=== PATIENT | male | born 1955 | race Caucasian/White ===

== ENCOUNTER 2016-07-11 19:05 | Observation (INO) ==
--- NOTE | 2016-07-11 19:53 | Emergency Department Note ---
Disposition Clinical Impression: Palpitations, Cardiac arrhythmia Disposition: Admitted As Inpatient Referrals: Unassigned,Provider [Primary Care Provider] - Forms: ED Satisfaction Letter Arrhythmia/Palpitations HPI - General Chief Complaint: ED Arrhythmia/Palpitations Stated Complaint: in afib Time Seen by Provider: 07/11/16 19:15 Source: patient - History of Present Illness HPI Narrative: 61-year-old male history of coronary artery disease, status post triple vessel bypass, status post PCI, atrial fibrillation presents with chief complaint of palpitations. Patient states palpitations started this afternoon. He describes them as butterflies in his chest, and flip-flopping. They have been intermittent. He denies shortness of breath, chest pain, headache, blurry vision, syncope, diaphoresis. Patient has a left heart catheter in February showing 2 patent grafts with sinus PDA graft 100% occluded. At that time was discharged with medical therapy only. Patient is on aspirin and Plavix, beta jose rafael, Ranexa, Imdur and takes it as scheduled. - Related Data Home Medications Medication Instructions Recorded Confirmed Aspirin 81 mg PO DAILY 12/06/14 03/15/16 Atorvastatin [Lipitor] 40 mg PO HS 12/06/14 03/15/16 Clopidogrel [Plavix] 75 mg PO DAILY 12/06/14 03/15/16 Metoprolol XL (24 HR) Succ [Toprol 50 mg PO BID 12/06/14 03/15/16 XL] Nitroglycerin [Nitrostat] 0.4 mg SL Q5M PRN 12/06/14 03/15/16 Ranolazine [Ranexa] 1,000 mg PO BID 12/06/14 03/15/16 Fluticasone Propionate [Flonase 9.9 ml NS DAILY PRN 03/15/16 03/15/16 Allergy Relief] Montelukast [Singulair] 10 mg PO DAILY 03/15/16 03/15/16 Ranitidine HCl [Zantac] 300 mg PO DAILY PRN 03/15/16 03/15/16 Allergies Allergy/AdvReac Type Severity Reaction Status Date / Time Penicillins Allergy Mild swelling, Verified 07/11/16 19:27 itching digoxin Allergy unknown Verified 07/11/16 19:27 Review of Systems: ROS: Constitutional: Denies fevers chills HEENT: Denies blurry vision, headache, sore throat, rhinorrhea Heart: Denies chest pain, syncope, diaphoresis, or palpitations Lungs: Denies shortness of breath, cough Abdomen: Denies abdominal pain, nausea, vomiting : Denies dysuria, Extremeties: Denies leg cramps, swelling Neuro: Denies numbness and tingling Past Medical History - Past Medical History Medical history: Reports: atrial fibrillation, coronary artery disease, hyperlipidemia Surgical history: Reports: angioplasty/stent, coronary bypass (CABG) Psychiatric history: Reports: no psych history - Social History Smoking Status: Former smoker Smokeless Tobacco Status: No Alcohol use: Reports: occasionally Drug use: Reports: none Physical Exam General: Alert and oriented to place, time, self HEENT: Head normocephalic, atraumatic, EOMI, PERRLA, neck without lymphadenopathy, absent JVD, moist mucous membranes Heart: Regular rate and rhythm no murmur, Lungs: Clear to auscultation bilaterally Abdomen: Soft nontender nondistended with positive bowel sounds Extremities: Normal capillary refill, 1+ pedal edema bilaterally - General General appearance: alert, in no apparent distress Course Course Narrative: We will order troponin, EKG, chest x-ray CBC, BMP - Reevaluation(s) Reevaluation #1: EKG shows sinus rhythm with rate of 60 and a run of PVCs. There is no ST-T wave changes. Previous EKG does not show any PVCs, otherwise no changes. Patient says he has history of atrial fibrillation but is not on any anticoagulation for this. Time: 19:57 Reevaluation #2: Electrolytes normal. Troponin 0.00. Chest x-ray stable cardiomegaly. Time: 20:40 Vital Signs Temperature 98.0 F 07/11/16 19:19 Pulse Rate 56 07/11/16 19:19 Respiratory Rate 16 07/11/16 19:19 Blood Pressure 154/104 07/11/16 19:19 O2 Sat by Pulse Oximetry 98 07/11/16 19:19 Temperature 98.0 F 07/11/16 19:19 Pulse Rate 63 07/11/16 20:51 Respiratory Rate 16 07/11/16 20:51 Blood Pressure 141/92 07/11/16 20:51 O2 Sat by Pulse Oximetry 95 07/11/16 20:51 Oxygen Delivery Oxygen Delivery Room Air Arrhythmia/Palpitations - MDM Narrative Medical decision making narrative: Patient has extensive cardiac history: Status post PCI, status post CABG 3 who has new onset of recurrent runs of PVCs of 15-30 seconds with symptoms of palpitations. RF: male sex, obesity, CAD, HLD. Patient is except for hospitalist for overnight observation. - Differential Diagnosis Differential Diagnosis: Likely: palpitations - Medical Records Medical records reviewed: Yes I reviewed the patient's medical records. - Lab Data Lab results reviewed: Yes I reviewed the patient's lab results. Result diagrams: 07/11/16 19:55 07/11/16 19:55 Lab Results 07/11/16 07/11/16 07/11/16 Range/Units 19:55 19:55 19:55 WBC 7.3 (4.3-11.1) K/mcL RBC 5.09 (4.19-5.50) M/mcL Hgb 15.7 (12.9-16.9) g/dL Hct 44.9 (37.5-50.1) % MCV 88.2 (83.0-100.0) fL MCH 30.8 (28.0-33.3) pg MCHC 35.0 (31.6-35.5) g/dL RDW 12.5 (11.5-14.5) % Plt Count 205 (140-400) K/mcL MPV 10.2 (9.4-12.4) fL PT (9.4-12.1) Seconds INR Sodium 138 (136-145) mEq/L Potassium 4.4 (3.5-4.5) mEq/L Chloride 103 (98-109) mEq/L Carbon Dioxide 25 (19-29) mEq/L BUN 13 (8-26) mg/dL Creatinine 1.06 (0.72-1.25) mg/dL Est GFR ( Amer) > 60 (> 60) Est GFR (Non-Af Amer) > 60 (> 60) BUN/Creatinine Ratio 12 (6-26) Glucose 99 (70-99) mg/dL Calculated Osmolality 286 (280-300) Calcium 9.0 (8.6-10.8) mg/dL Magnesium 2.3 (1.6-2.6) mg/dL Troponin I 0.00 (0-0.03) ng/mL B-Natriuretic Peptide (0-100) pg/mL 07/11/16 07/11/16 Range/Units 19:55 19:55 WBC (4.3-11.1) K/mcL RBC (4.19-5.50) M/mcL Hgb (12.9-16.9) g/dL Hct (37.5-50.1) % MCV (83.0-100.0) fL MCH (28.0-33.3) pg MCHC (31.6-35.5) g/dL RDW (11.5-14.5) % Plt Count (140-400) K/mcL MPV (9.4-12.4) fL PT 11.7 (9.4-12.1) Seconds INR 1.1 Sodium (136-145) mEq/L Potassium (3.5-4.5) mEq/L Chloride (98-109) mEq/L Carbon Dioxide (19-29) mEq/L BUN (8-26) mg/dL Creatinine (0.72-1.25) mg/dL Est GFR ( Amer) (> 60) Est GFR (Non-Af Amer) (> 60) BUN/Creatinine Ratio (6-26) Glucose (70-99) mg/dL Calculated Osmolality (280-300) Calcium (8.6-10.8) mg/dL Magnesium (1.6-2.6) mg/dL Troponin I (0-0.03) ng/mL B-Natriuretic Peptide 99 (0-100) pg/mL - Radiology Data Radiology results reviewed: Yes I reviewed the patient's radiology results. - EKG Data EKG results narrative: EKG shows sinus rhythm with rate of 60 and a run of PVCs. There is no ST-T wave changes. Previous EKG does not show any PVCs, otherwise no changes.
[2016-07-11 20:06] LABS: Hematocrit 44.9 % (37.5-50.1); Hemoglobin 15.7 g/dL (12.9-16.9); Mean Corpuscular Hemoglobin 30.8 pg (28.0-33.3); Mean Corpuscular Volume 88.2 fL (83.0-100.0); Mean Platelet Volume 10.2 fL (9.4-12.4); Platelet Count 205 K/mcL (140-400); Red Blood Count 5.09 M/mcL (4.19-5.50); Red Cell Distribution Width 12.5 % (11.5-14.5)
[2016-07-11 20:12] LABS: INR 1.1; Prothrombin Time 11.7 Seconds (9.4-12.1)
--- NOTE | 2016-07-11 20:12 | Emergency Department Note ---
START Narrative - START START: I evaluated and examined the patient with the resident and agree with assessment findings and plan. I spent direct [id number] time with the patient. The patient appears to have a history of atrial fibrillation from when he was 19 years old. Is currently not anticoagulated. His EKG shows abnormalities including frequent PVCs. Physical examination as documented and unremarkable apart from some lower extremity edema worse on the right chronic secondary to previous venous stripping. The patient's laboratory testing and chest x-ray are negative. Based on the patient's history of coronary artery disease, history of atrial fibrillation, new onset symptomatic palpitations with notable frequent PVCs including runs of PVCs, I thought it appropriate to admit the patient to the hospital. The patient has multiple vascular comorbidities and is not currently anticoagulated. We discussed the case with the hospitalist on-call who is accepted the patient to their care. Patient is not experiencing chest pain. Impression: Cardiac arrhythmia Palpitations History of atrial fibrillation History of coronary disease Obesity Frail elderly Hyperlipidemia Chronic peripheral edema right lower extremity secondary venous stripping
[2016-07-11 20:18] LABS: Magnesium 2.3 mg/dL (1.6-2.6)
[2016-07-11 20:20] LABS: BUN/Creatinine Ratio 12 (6-26); Blood Urea Nitrogen 13 mg/dL (8-26); Carbon Dioxide 25 mEq/L (19-29); Chloride 103 mEq/L (98-109); Glucose 99 mg/dL (70-99); Osmolality,Calculated 286 (280-300); Potassium 4.4 mEq/L (3.5-4.5); Sodium 138 mEq/L (136-145); eGFR For African Americans > 60 (> 60); eGFR For Non-African Americans > 60 (> 60)
--- NOTE | 2016-07-11 23:19 | Internal Med History&Physical ---
<Joseluis Benedict - Last Filed: 07/12/16 00:02> Date of Encounter: 07/12/16 Time of Encounter: 22:30 Assessment and Plan (1) Cardiac arrhythmia Current visit: Yes Status: Acute - EKG showed frequent PVCs that can last continuously for 3 beats or longer. - Suspect junctional rhythm. - May be triggered by caffeine intake from diet coke. - Will check UDS and TSH. - Will consult cardiology and appreciate further evaluation and recommendations. - Continue rate control with home dose metoprolol. - Closely monitor with telemetry. Qualifiers: Arrhythmia type: unspecified cardiac arrhythmia Qualified Code(s): I49.9 - Cardiac arrhythmia, unspecified (2) Palpitations Current visit: Yes Status: Acute - New onset of palpation associated with frequent PVCs noted on EKG. (3) CAD (coronary artery disease) Current visit: Yes Status: Chronic - S/p CABG in 2009 and multiple heart cath with stents. - LHC in 02/2016 found severe two vessel CAD. EF50%. 2/3 patent grafts. - Troponin 0.00 on admission. - Continue aspirin, Plavix, Toprol XL, Lipitor, Indur and Ranexa. Qualifiers: Coronary Disease-Associated Artery/Lesion type: bypass graft [place] vs. transplanted heart: [place] heart Associated angina: without angina Qualified Code(s): I25.810 - Atherosclerosis of coronary artery bypass graft(s) without angina pectoris (4) Paroxysmal atrial fibrillation Current visit: Yes Status: Acute - Currently rate-controlled. - Continue home dose metoprolol, aspirin and Plavix. - Closely monitor with telemetry. (5) DVT prophylaxis Current visit: Yes Status: Acute - SQ heparin. Internal Medicine - H&P: HPI Chief complaint: Palpitation Admitted From: Emergency Dept Plans for Post Hospital Care: Home History of present illness: Mr. Rios is a 61 year old male with PMH of A-fib and CAD s/p CABG in 2009 and multiple heart cath (latest one in 02/2016) with stents placed currently on aspirin & Plavix. Patient presented to [facility] ED with complaint of intermittent palpitation. It's acute new onset of palpitation starting 1:30 pm today. Patient can feel it initially every 5 minutes but now is every 2 minutes. Patient denies chest pain/discomfort, lightheadedness, syncope, dyspnea, cough, nausea, vomiting, recent weight change, edema. Patient had seen Dr. Peter of [facility] cardiology on 06/23/16 and reports no recent change in medications. Patient denies any recent OTC medication or supplement use. Patient doesn't drink coffee but did have a cup of caffeine-containing diet coke during lunch today. Patient reports having caffeine-containing diet coke few times in the past but never has this kind of palpation. Patient also states he typically does not feel palpation from his a-fib. Patient is full code. Past Med Surg Social Fam HX - Past Medical History Medical history: atrial fibrillation, coronary artery disease, hyperlipidemia Psychiatric history: no psych history - Past Surgical History Surgical History: angioplasty/stent, coronary bypass (CABG), herniorrhaphy, LE vascular intervention (Right leg) - Social History Smoking Status: Former smoker Smokeless Tobacco Status: No Alcohol use: occasionally Drug use: none - Family History Father Name: Andres Rios Living Status: Age at : 47 Cause of : AR Hx Family Cardiac Disorders: Yes (AR, hemophiliac) Hx Family Respiratory Disorders: No Hx Family Cancer: No Hx Family GI Disorders: No Hx Family Genitourinary Disorders: No Hx Family Endocrine Disorder: No Hx Family Musculoskeletal Disorders: No Hx Family Neuromuscular Disorders: No Hx Family Neurologic Disorders: No Hx Family HEENT Disorders: No Hx Family Autoimmune Disorders: No Hx Family Reproductive Disorders: No Hx Family Psychosocial Disorders: No Hx Family Medical Disorders: No Brother Hx Family Cardiac Disorders: Yes (AR) Mother Living Status: Hx Family Cancer: Yes (lymphoma) Internal Medicine - H&P: Meds Aspirin 81 mg PO DAILY 12/06/14 [History] Atorvastatin [Lipitor] 40 mg PO HS 12/06/14 [History] Clopidogrel [Plavix] 75 mg PO DAILY 12/06/14 [History] Metoprolol XL (24 HR) Succ [Toprol XL] 75 mg PO BID 12/06/14 [History] Nitroglycerin [Nitrostat] 0.4 mg SL Q5M PRN 12/06/14 [History] Ranolazine [Ranexa] 1,000 mg PO BID 12/06/14 [History] Montelukast [Singulair] 10 mg PO DAILY 03/15/16 [History] Ranitidine HCl [Zantac] 300 mg PO DAILY PRN 03/15/16 [History] Isosorbide MONOnitrate (24 HR) [Imdur] 30 mg PO DAILY 07/11/16 [History] Allergies Penicillins Allergy (Mild, Verified 07/11/16 19:27) swelling, itching digoxin Allergy (Verified 07/11/16 19:27) unknown All Systems PM: A 10-system review of systems was performed and is negative for pertinent findings except as documented above in the HPI. - Constitutional Constitutional: no chills, no fatigue, no fever(s), no weight gain - EENT Eyes: no change in vision Ears: no decreased hearing Nose, mouth and throat: no dysphagia, no odynophagia - Cardiovascular Cardiovascular ROS IM: as per HPI, palpitations, no chest pain, no edema, no lightheadedness, no syncope - Respiratory Respiratory: no cough, no dyspnea, no hemoptysis - Gastrointestinal Gastrointestinal: no abdominal pain, no diarrhea, no hematochezia, no melena, no nausea, no vomiting - Genitourinary Genitourinary ROS male: no difficulty urinating, no dysuria, no hematuria - Musculoskeletal Musculoskeletal ROS IM: no arthralgias, no myalgias - Integumentary Integumentary IM: no pruritus, no rash - Neurological Neurological ROS: no focal weakness, no numbness, no tingling - Hematologic/Lymphatic Hematologic/Lymphatic: easy bruising, no easy bleeding - Constitutional Vitals: Temp Pulse Resp BP Pulse Ox 98.2 F 62 18 121/79 97 07/11/16 22:24 07/11/16 22:24 07/11/16 22:24 07/11/16 22:24 07/11/16 22:24 General appearance: Present: cooperative, A&O X 3, no acute distress, answers questions appropriately - Head Head exam: Present: atraumatic, normocephalic - Eye Eye exam: Present: EOMI, PERRL, conjuntiva pink, sclera anicteric - Neck Neck exam general surgery: Present: supple, trachea midline. Absent: lymphadenopathy - Respiratory Respiratory exam: Present: CTAB. Absent: accessory muscle use, rales, rhonchi, wheezes - Cardiovascular Cardiovascular exam: Present: irregular rhythm, +S1, +S2. Absent: diastolic murmur, gallop, rubs, systolic murmur - GI/Abdominal GI/Abdominal exam: Present: normal bowel sounds, soft, no peritoneal signs. Absent: distended, tenderness - Extremities Exam Extremities exam: Present: warm, radial pulses palpable and symetrical. Absent : calf tenderness, cyanotic, pedal edema - Neurological Exam Neurological exam: Present: CN II-XII intact, oriented X3, no focal deficits. Absent: pronater drift, facial droop, speech deficit - Skin Skin exam: Present: dry, intact, warm Internal Med - H&P Results - Labs CBC & Chem 7: 07/11/16 19:55 07/11/16 19:55 Labs: Short CBC 07/11/16 Range/Units 19:55 WBC 7.3 (4.3-11.1) K/mcL Hgb 15.7 (12.9-16.9) g/dL Hct 44.9 (37.5-50.1) % Plt Count 205 (140-400) K/mcL BMP 07/11/16 Range/Units 19:55 Sodium 138 (136-145) mEq/L Potassium 4.4 (3.5-4.5) mEq/L Chloride 103 (98-109) mEq/L Carbon Dioxide 25 (19-29) mEq/L BUN 13 (8-26) mg/dL Creatinine 1.06 (0.72-1.25) mg/dL Glucose 99 (70-99) mg/dL Calcium 9.0 (8.6-10.8) mg/dL Cardiac Enzymes 07/11/16 Range/Units 19:55 Troponin I 0.00 (0-0.03) ng/mL - EKG Data -: EKG Interpreted by Myself Rate: normal - EKG Data Prior EKG available for review: yes When compared to previous EKG: there are significant changes EKG comments: 07/11/16 23:47 Continuous PVC (3-4 beats) noted. Questionable junctional rhythm into atopic. No significant ischemic change. - Impressions Impressions Chest X-Ray 07/11/16 19:48 IMPRESSION: No acute process. Stable cardiomegaly D/ / Jovan Matthew MD / Jovan Matthew MD Interpreting Provider: Jovan Matthew MD <Chaparrita Chao R - Last Filed: 07/12/16 01:16> Date of Encounter: 07/11/16 Internal Medicine - H&P: HPI History of present illness: Mr. Rios is a 61 year old male All Systems PM: A 10-system review of systems was performed and is negative for pertinent findings except as documented above in the HPI. - Constitutional Vitals: Temp Pulse Resp BP Pulse Ox 98.2 F 62 18 121/79 97 07/11/16 22:24 07/11/16 22:24 07/11/16 22:24 07/11/16 22:24 07/11/16 22:24 Internal Med - H&P Results - Labs CBC & Chem 7: 07/11/16 19:55 07/11/16 19:55 Labs: Cardiac Enzymes 07/12/16 Range/Units 00:32 Troponin I 0.00 (0-0.03) ng/mL - Attending Attestation I performed history and physical examination of the patient and discussed management with resident/Certified Performance Technologist. I reviewed the resident/ Interns note and agree with the documented findings and plan of care. 61 Y/M with A Fib, CAD with prior CABG and recent heart cath in 02/2016. Presents with palpitations (sensation of change in rhythm), started at about 1: 30 PM today. He had Diet Coke today at lunchtime, which is not unusual for him and had no coffee. He denies any other changes and denies smoking. He took metoprolol this afternoon, without significant improvement of the palpitations. O/E: Comfortable. Not in acute distress. Cardiac regular rate and rhythm. Systolic murmur present. Lungs clear to auscultation. EKG personally reviewed by me. Sinus rhythm and I suspect his palpitations are due to junctional rhythm. CXR personally reviewed by me shows no acute abnormality. Magnesium is 2.3, potassium 4.4, troponin 0.0, BNP 99 A/P: Palpitations: Likely due to junctional rhythm. Patient is hemodynamically stable and is adequately betablocked. Monitor on telemetry. Check troponins. Cardiology consultation.
[2016-07-11] MEDS ORDERED: Nitroglycerin 0.4 MG TAB.SUBL SL PRN (23:37)
[2016-07-12] MEDS ORDERED: *HR* Heparin 5,000 UNIT/ML VIAL SQ SCH (06:00)
[2016-07-12] MEDS ORDERED: Metoprolol XL (24 HR) Succ 50 MG TAB.ER.24H PO SCH (09:00)
--- NOTE | 2016-07-12 09:06 | Cardiology Consult Note ---
Date of Encounter: 07/12/16 Time of Encounter: 09:05 Assessment and Plan (1) Accelerated idioventricular rhythm Current Visit: Yes Status: Acute Patient is a 61 year old male with significant cardiac history including CAD s/ p triple vessel bypass in 2009, s/p stent 08/2011 and 12/2012, most recent [facility] 03/15/2016, paroxysmal afib on aspirin, hypertension, hyperlipidemia, and chronic lower extremity edema secondary to previous venous stripping who presented to the ED with complaint of palpitations without additional associated symptoms and stable vitals. Multiple EKGs revealed sinus rhythm with PVCs up to runs of 3, no st elevation/ depressions or t wave inversions. It appears the ventricular rate seems to take over when sinus rate slows down below 60 upon. CXR revealed no acute cardiopulm processes. Troponins 0.00 x3 BNP 99, Cr 1.06 TSH 2.808 Electrolytes essentially normal. Potassium 4.4, Magnesium 2.3 Vitals: Temp 97.7, P 57, Resp 16, bp 148/87, O2 sat 96% on room air Telemetry overnight revealed many episodes of accelerated idioventricular rhythm with longest run of 27 (rate 62bpm) Continue monitoring telemetry Echo ordered Decrease to Toprol XL 50mg bid. Follow up with Dr. Vaughn as outpatient. Holter monitor upon discharge. (2) Palpitations Current Visit: Yes Status: Acute Palpitations possibly secondary to accelerated idioventricular rhythm. Continue per plan in assessment above. Consider Event monitor as outpatient. (3) CAD (coronary artery disease) Current Visit: Yes Status: Chronic Patient is a 61 year old male with history of CAD s/p triple vessel bypass in 2009, s/p stent 08/2011 and 12/2012, most recent [facility] 03/15/2016, paroxysmal afib on aspirin, hypertension, hyperlipidemia, and chronic lower extremity edema secondary to previous venous stripping. Multiple EKG reveal sinus rhythm with PVCs up to runs of 3, no st elevations or depressions or t wave inversions. CXR revealed no acute cardiopulm processes. Troponins 0.00 x3 BNP 99, Cr 1.06 Vitals: Temp 97.7, P 57, Resp 16, bp 148/87, O2 sat 96% on room air Continue home medications including aspirin, plavix, Lipitor, Imdur, and Ranexa. Decrease Toprol XL per plan in assessment above. Qualifiers: Coronary Disease-Associated Artery/Lesion type: bypass graft [place] vs. transplanted heart: [place] heart Associated angina: without angina Qualified Code(s): I25.810 - Atherosclerosis of coronary artery bypass graft(s) without angina pectoris (4) Paroxysmal atrial fibrillation Current Visit: Yes Status: Chronic Currently rate controlled. Continue aspirin, and plavix. Decrease Toprol per plan in assessments above. Continue continuous telemetry monitoring. (5) Hypertension Current Visit: Yes Status: Acute Bp 121-148/77-92 overnight, pulse 56-63 Continue home medications for chronic disease management. Qualifiers: Hypertension type: essential hypertension Qualified Code(s): I10 - Essential (primary) hypertension (6) Hyperlipidemia Current Visit: Yes Status: Acute Continue home medications for chronic disease management. Lipitor 40mg qhs. Qualifiers: Hyperlipidemia type: unspecified Qualified Code(s): E78.5 - Hyperlipidemia , unspecified Discussion w patient/family: The assessment and plan as outlined above was discussed with the patient and/or family members who expressed understanding and agreement. All questions were answered. Thank you for involving us in the care of your patient. Please call with any questions. History of Present Illness Consult date: 07/11/16 Requesting physician: Joseluis Benedict Consult reason: PVCs with runs 2-4 beats, no cheat pain, negative troponins Chief complaint: Palpitations History of present illness: Mr. Rios is a 61 year old male with history of CAD s/p triple vessel bypass in 2009, s/p stent 08/2011 and 12/2012, most recent [facility] 03/15/2016, paroxysmal afib on aspirin, hypertension, hyperlipidemia, and chronic lower extremity edema secondary to previous venous stripping who presented to the ED yesterday evening with complaint of intermittent palpitations since around 13:00pm yesterday after returning home from [place]. Patient reports palpitations feel like butterflies and were initially every 5 minutes then increased to every couple minutes. Denies chest pain or pressure, shortness of breath, headaches, lightheadedness, dizziness, syncope or presyncope, or weakness. Patient denies recent changes in medications, significant caffeine use, alcohol, or smoking. Did have one diet coke yesterday afternoon but has never had issues in the past. Patient also denies fevers, chills, sweats, changes in vision or hearing , neck pain, dysphagia, abdominal pain, changes in bowels or bladder, changes in mood or energy. CXR revealed no acute cardiopulm processes, stable cardiomegaly. Troponin 0.00 x3, BNP 99, Cr 1.06. Multiple EKGs reviewed and revealed sinus rhythm with rate in the 60s with PVCs, no st elevation/ depressions or t wave inversions. Vitals have been stable. Multiple telemetry strips printed/reviewed show sinus rhythm and runs of ventricular rhythm with bp 120/40 and rate in 50s. Review of records: Nuclear Stress Test 03/03/16: No significant ecg changes with regadenoson and low level exercise. Noted occasional PACs prior to exam and in recovery. LVEF 61%. Small sized, mild-moderate intensity, reversible perfusion defect limited to the LLV apex consistent with mild-moderate ischemia of the LV apex. C 03/15/16: Severe two vessel coronary artery disease, LV normal, normal contractility with EF 50%, s/p CABG 2/3 patent bypass grafts without significant change in anatomy since last [facility]. Left main coronary artery angiographically free of disease. Mid distal left anterior descending is small in size with 100% stenosis in the mid LAD. Proximal circumflex with 100% stenosis. Right PDA is small in size with 60% stenosis. Sequential saphenous vein graft to the 1st Marginal and 2nd marginal is patent with YONATHAN flow of 3. Left internal mammary graft to Mid LAD is patent with YONATHAN flow of 3. Saphenous vein graft to the right PDA is occluded. Current meds include: Metoprolol XL succ 75mg bid, Ranexa 1000 bid, Imdur Cr 30mg qd, Plavix 75mg qd, Aspirin 81mg qd, and Lipitor 40mg qhs Patient reports overnight he had continued palpitations and had trouble sleeping. He reports nothing makes it better or worse. Continues to have palpitations when ambulating and denies associated symptoms. Patient denies chills, sweats, lightheadedness, dizziness, weakness, chest pain or pressure, or shortness of breath. Review of telemetry overnight revealed many episodes of accelerated idioventricular rhythm with longest run of 27 (rate 62bpm). Past Med Surg Social Fam HX - Past Medical History Medical history: atrial fibrillation, coronary artery disease, hyperlipidemia Psychiatric history: no psych history - Past Surgical History Surgical History: angioplasty/stent, coronary bypass (CABG), herniorrhaphy, LE vascular intervention (Right leg) - Social History Smoking Status: Former smoker Smokeless Tobacco Status: No Alcohol use: occasionally Drug use: none - Family History Father Name: Andres Rios Living Status: Age at : 47 Cause of : [place] Hx Family Cardiac Disorders: Yes ([place], hemophiliac) Hx Family Respiratory Disorders: No Hx Family Cancer: No Hx Family GI Disorders: No Hx Family Genitourinary Disorders: No Hx Family Endocrine Disorder: No Hx Family Musculoskeletal Disorders: No Hx Family Neuromuscular Disorders: No Hx Family Neurologic Disorders: No Hx Family HEENT Disorders: No Hx Family Autoimmune Disorders: No Hx Family Reproductive Disorders: No Hx Family Psychosocial Disorders: No Hx Family Medical Disorders: No Brother Hx Family Cardiac Disorders: Yes ([place]) Mother Living Status: Hx Family Cancer: Yes (lymphoma) Medications and Allergies Aspirin 81 mg PO DAILY 12/06/14 [History] Atorvastatin [Lipitor] 40 mg PO HS 12/06/14 [History] Clopidogrel [Plavix] 75 mg PO DAILY 12/06/14 [History] Metoprolol XL (24 HR) Succ [Toprol XL] 75 mg PO BID 12/06/14 [History] Nitroglycerin [Nitrostat] 0.4 mg SL Q5M PRN 12/06/14 [History] Ranolazine [Ranexa] 1,000 mg PO BID 12/06/14 [History] Montelukast [Singulair] 10 mg PO DAILY 03/15/16 [History] Ranitidine HCl [Zantac] 300 mg PO DAILY PRN 03/15/16 [History] Isosorbide MONOnitrate (24 HR) [Imdur] 30 mg PO DAILY 07/11/16 [History] Acyclovir [Zovirax] 800 mg PO 5XD 07/12/16 [History] DiphenhydraMINE [Benadryl] 25 mg PO Q6HR PRN 07/12/16 [History] Allergies Penicillins Allergy (Mild, Verified 07/11/16 19:27) swelling, itching digoxin Allergy (Verified 07/11/16 19:27) unknown All Systems Review: A 10-system review of systems was performed and is negative for pertinent findings except as documented above in the HPI. - Constitutional Constitutional: no chills, no fever(s), no headache(s), no night sweats, no weakness - EENT Eyes: no blurred vision Nose, mouth and throat: no dysphagia - Cardiovascular Cardiovascular: irregular heart rhythm, palpitations, no as per HPI, no chest pain at rest, no chest pain with exertion, no diaphoresis, no dyspnea at rest, no dyspnea on exertion, no radiating jaw, neck or arm pain, no lightheadedness, no syncope - Respiratory Respiratory: no cough, no dyspnea - Gastrointestinal Gastrointestinal: no abdominal pain, no constipation, no diarrhea, no nausea - Neurological Neurological: no abnormal speech, no dizziness, no numbness, no syncope, no tingling Physical Examination Vital Signs, Last 4 Hours Temp Pulse Resp BP Pulse Ox 07/12/16 07:41 97.7 F 57 16 148/87 96 General: Conversant, No Apparent Distress HEENT: Atraumatic, Normocephaly, Mucus Membranes Moist Neck: No JVD, Normal carotid pulses Cardiac: Normal S1 and S2, No Murmur, Other (regular rate, irregular rhythm, surgical scar midline chest) Lungs: Normal Breath Sounds, No Wheeze, Rales, Rhonchi Neuro: Alert and responsive, No focal deficits noted Abdomen: Soft, Non-Tender Skin: No rashes noted on visualized skin Musculoskeletal: No Chest Wall Tenderness Extremities: No Clubbing, No Cyanosis, Normal Pulses, Other (1+ lower extremity edema (chronic)) Results 07/11/16 19:55 07/11/16 19:55 Lab Results 07/12/16 07/12/16 07/12/16 00:32 00:32 06:21 Troponin I 0.00 0.00 TSH 2.808 Consult Discharge Plan - Plan Referrals: Spring Andrews MD [Primary Care Provider] -
[2016-07-12] MEDS: Ranolazine 500 MG TAB.ER.12H PO SCH ×2 (10:40→22:01)
[2016-07-12] MEDS: Isosorbide MONOnitrate (24 HR) 30 MG TAB.ER.24H PO SCH (10:40)
[2016-07-12] MEDS: Aspirin 81 MG TAB.CHEW PO SCH (10:40)
--- NOTE | 2016-07-12 15:16 | Internal Med Progress Note ---
<Noe Bran - Last Filed: 07/12/16 15:10> Date of Encounter: 07/12/16 Time of Encounter: 15:10 - Assessment and plan (1) Frequent PVCs Current Visit: Yes Status: Acute Assessment and plan: patient came in with CC of palpitations. EKG showed frequent PVCs of 3 beats or longer. TSH, BNP normal. tropes x3 negative. CXR showed no acute process. Plan: per cardiology, decrease BB dose. Echo pending, if no concerning findings on Echo, d/c with 48 hour holter and outpatient follow up with Dr. Luis Miguel murillo. (2) Palpitations Current Visit: Yes Status: Acute Assessment and plan: plan as above. (3) CAD (coronary artery disease) Current Visit: Yes Status: Chronic Assessment and plan: last [facility] on 03/15/16 showed severe two vessel CAD. LV normal and had normal contractility, EF 50%. s/p CABG, showed 2/3 patent bypass grafts. no change in coronary anatomy. recommended optical medical therapy at that time Plan: continue ASA, statin, plavix, BB Qualifiers: Coronary Disease-Associated Artery/Lesion type: bypass graft [place] vs. transplanted heart: [place] heart Associated angina: without angina Qualified Code(s): I25.810 - Atherosclerosis of coronary artery bypass graft(s) without angina pectoris (4) Paroxysmal atrial fibrillation Current Visit: Yes Status: Chronic Assessment and plan: rate controlled. continue to monitor with telemetry. (5) DVT prophylaxis Current Visit: Yes Status: Acute Assessment and plan: patient agrees to ambulate halls regularly - Subjective Interval history: 61 year old male evaluated at bedside. patient denies denies nausea, vomiting, diarrhea, fever, chills, SOB. he reports occasional palpitatios. he denies any chest pain. he has no further complaints today. - Constitutional Vitals: Temp Pulse Resp BP Pulse Ox 98.2 F 63 16 120/77 94 07/12/16 14:50 07/12/16 14:50 07/12/16 14:50 07/12/16 14:50 07/12/16 14:50 General appearance: Present: cooperative, A&O X 3, no acute distress, answers questions appropriately - Head Head exam: Present: atraumatic, normocephalic - Neck Neck exam general surgery: Present: supple, trachea midline - Respiratory Respiratory exam: Present: CTAB - Cardiovascular Cardiovascular exam: Present: RRR, +S1, +S2 - GI/Abdominal GI/Abdominal exam: Present: distended, normal bowel sounds, soft. Absent: tenderness - Extremities Exam Extremities exam: Absent: cyanotic, pedal edema - Neurological Exam Neurological exam: Present: alert, oriented X3, no focal deficits - Psychiatric Psychiatric exam: Present: normal affect, normal mood Internal Medicine: Result - Labs CBC & Chem 7: 07/11/16 19:55 07/11/16 19:55 Labs: Cardiac Enzymes 07/12/16 07/12/16 Range/Units 00:32 06:21 Troponin I 0.00 0.00 (0-0.03) ng/mL - ABG Interpretation ABG results: PT/INR, D-dimer PT 11.7 Seconds (9.4-12.1) 07/11/16 19:55 - VTE Reasons for not Prescribing Prophylaxis: Treatment not Indicated - Low risk for VTE Consult Discharge Plan - Plan Referrals: Spring Andrews MD [Primary Care Provider] - <Chris Cardenas - Last Filed: 07/12/16 20:13> Date of Encounter: 07/12/16 - Assessment and plan (1) Palpitations Current Visit: Yes Status: Acute (2) Frequent PVCs Current Visit: Yes Status: Acute (3) CAD (coronary artery disease) Current Visit: Yes Status: Chronic Qualifiers: Coronary Disease-Associated Artery/Lesion type: bypass graft [place] vs. transplanted heart: [place] heart Associated angina: without angina Qualified Code(s): I25.810 - Atherosclerosis of coronary artery bypass graft(s) without angina pectoris (4) Hypertension Current Visit: Yes Status: Acute Qualifiers: Hypertension type: essential hypertension Qualified Code(s): I10 - Essential (primary) hypertension - Constitutional Vitals: Temp Pulse Resp BP Pulse Ox 97.8 F 63 18 127/69 96 07/12/16 18:55 07/12/16 18:55 07/12/16 18:55 07/12/16 18:55 07/12/16 18:55 Internal Medicine: Result - Labs CBC & Chem 7: 07/11/16 19:55 07/11/16 19:55 Labs: Cardiac Enzymes 07/12/16 07/12/16 Range/Units 00:32 06:21 Troponin I 0.00 0.00 (0-0.03) ng/mL - ABG Interpretation ABG results: PT/INR, D-dimer PT 11.7 Seconds (9.4-12.1) 07/11/16 19:55 - Attending Attestation I examined this patient and my medical decision-making was reviewed with the Resident Physician on 07/12/16. I agree with the documented findings, disposition and treatment plan as described except to the extent set forth below. Mr. Rios is currently in observation due to palpitations and freq PVCs Exam Alert. Comfortable Heart reg No wheeze I/P 1. Palpitations 2. PVCs Further diagnoses and plan as above. Appreciate card input.
--- NOTE | 2016-07-12 19:34 | Electrocardiograph Report ---
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
--- NOTE | 2016-07-12 19:34 | Electrocardiograph Report ---
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
--- NOTE | 2016-07-12 19:53 | Electrocardiograph Report ---
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
[2016-07-12] MEDS ORDERED: Perflutren Lipid Microsphere 1.3 ML in 0.9 % Sodium Chloride 8.7 ML IVP ONE (20:40)
[2016-07-12] MEDS: Metoprolol XL (24 HR) Succ 50 MG TAB.ER.24H PO SCH (22:01)
[2016-07-13] MEDS: Aspirin 81 MG TAB.CHEW PO SCH (08:31)
[2016-07-13] MEDS: Isosorbide MONOnitrate (24 HR) 30 MG TAB.ER.24H PO SCH (08:32)
[2016-07-13] MEDS: Ranolazine 500 MG TAB.ER.12H PO SCH (08:32)
--- NOTE | 2016-07-13 09:40 | ECHO - Doppler Report ---
Echo with Imaging Enhancement Agent Name: Chris Rios Date of Study: 07/12/2016 Date: 1955 Ht: 72.0 in Medical Record#: [id number] Age: 61 Wt: 290.0 lb Gender: Male BSA: 2.49 Order #: [id number] Location: [facility] Room #: 3B Reading Physician: Vianca Aguilar DO Health Services Coordinator: Millie Mcfarland Ordering Physician: Yunier Lucas DO Primary Physician: Spring Andrews MD Indications: Palpitations Impressions: Technically challenging study with suboptimal windows. Definity was used to visualize the endocardial border. LV systolic function is normal, EF 60%. RV is not well evaluated on this study. No significant valve abnormalities by Doppler. Lack of TR gradient to detect pulmonary hypertension. Left Ventricular Wall Motion: Rest Echo Findings All wall segments showed normal motion. Findings: Study Quality * Technically sub-optimal due to body habitus. ECG Findings * Normal sinus rhythm. Aortic Valve * No aortic regurgitation. * Aortic valve not well visualized. * No aortic stenosis. Mitral Valve * No mitral regurgitation. * No mitral stenosis. * Suboptimally visualized. Aorta * Suboptimally visualized. Tricuspid Valve * Tricuspid valve not well visualized. * No tricuspid regurgitation. Pulmonic Valve * Pulmonic valve is not well visualized. * No pulmonic stenosis. * No pulmonic regurgitation. Pulmonary Artery * Pulmonary artery not well visualized. Left Ventricle * Mild left ventricular diastolic dysfunction. * Definity echo contrast was used. * LVEF 60%. * Normal LV size. Left Atrium * Normal left atrial size. Right Atrium * Normal right atrial size. Interatrial Septum * Interatrial septum not well evaluated. Pericardium * There is no pericardial effusion present. IVC * The IVC is not well evaluated. Right Ventricle * RV is not well evaluated. History Hypercholesteremia Family History of CAD History of CAD/PTCA Coronary Artery Bypass Graft 03/07/2012 a Previous Echo was performed. Contrast: Definity 1.3 ml in 8.7 ml of saline 3 ml. Measurements: BP: 120/ 77 2D Normal Values IVSd: 1.10 cm 0.6 - 1.0 cm LVIDd: 5.70 cm 3.7 - 5.6 cm LVPWd: 1.00 cm 0.6 - 1.1 cm LVIDs: 4.30 cm 1.5 - 3.6 cm AO: 3.10 cm < 4.0 cm LA: 5.20 cm 2.0 - 4.0cm %FS: 24.60 cm >25 % LA volume: 44 Mitral Valve Peak E:.71 m/sec Peak A:.76 m/sec E/A Ratio:0.9 Peak E' Lat Jalen:8.87 cm/s Peak E' Med Jalen:7.41 cm/s E/E' Lat Ratio:8 E/E' Med Ratio:9.5 Updated by Vianca Aguilar on 07/13/2016 9:34:26 AM electronically signed on 07/13/2016 9:35:46 AM with status of Final Wall Motion Zhao: 1=Normal, 2=Hypokinesis, 3=Akinesis, 4=Dyskinesis, 5=Aneurysmal, 6=Hyperkinetic, X=Not Visualized (Blank)=Missing
--- NOTE | 2016-07-13 09:54 | Cardiology Progress Note ---
Date of Encounter: 07/13/16 Time of Encounter: 09:52 Assessment and Plan (1) Accelerated idioventricular rhythm Current Visit: Yes Status: Acute Patient is a 61 year old male with significant cardiac history including CAD s/ p triple vessel bypass in 2009, s/p stent 08/2011 and 12/2012, most recent [facility] 03/15/2016, paroxysmal afib on aspirin, hypertension, hyperlipidemia, and chronic lower extremity edema secondary to previous venous stripping who presented to the ED with complaint of palpitations without additional associated symptoms and stable vitals. Multiple EKGs revealed sinus rhythm with PVCs up to runs of 3, no st elevation/ depressions or t wave inversions. CXR revealed no acute cardiopulm processes. Troponins 0.00 x3 BNP 99, Cr 1.06 TSH 2.808 Electrolytes essentially normal. Potassium 4.4, Magnesium 2.3 Vitals: Temp 97.6, P 59, Resp 17, bp 117/68, O2 sat 95% on room air Telemetry overnight revealed multiple episodes with longest run 31 (rate 62bpm) . Average heart rate 60bpm on telemetry. Echo with definity suboptimal due to body habitus. LVEF 60%, no significant valvle abnormalities. -Sinus rhythm with competing accelerated idioventricular rhythm. Reported palpitations yesterday afternoon, no additional palpitations overnight and this morning. Symptoms do not correlate with telemetry events. Continue with 50mg Toprol XL bid Follow up with Dr. Vaughn as outpatient. 48 hr Holter monitor upon discharge. Cardiology will sign off at this time. Please feel free to contact us with any additional questions. (2) Palpitations Current Visit: Yes Status: Acute Palpitations reported yesterday afternoon, denies additional palpitations overnight and this morning. Symptoms do not correlate with telemetry events. Continue per plan in assessment above. (3) CAD (coronary artery disease) Current Visit: Yes Status: Chronic Patient is a 61 year old male with history of CAD s/p triple vessel bypass in 2009, s/p stent 08/2011 and 12/2012, most recent [facility] 03/15/2016, paroxysmal afib on aspirin, hypertension, hyperlipidemia, and chronic lower extremity edema secondary to previous venous stripping. Multiple EKG reveal sinus rhythm with PVCs up to runs of 3, no st elevations or depressions or t wave inversions. CXR revealed no acute cardiopulm processes. Troponins 0.00 x3 BNP 99, Cr 1.06 Vitals: Temp 97.6, P 59, Resp 17, bp 117/68, O2 sat 95% on room air Continue home medications including aspirin, plavix, Lipitor, Imdur, and Ranexa. Continue 50mg Toprol XL bid. Qualifiers: Coronary Disease-Associated Artery/Lesion type: bypass graft [place] vs. transplanted heart: [place] heart Associated angina: without angina Qualified Code(s): I25.810 - Atherosclerosis of coronary artery bypass graft(s) without angina pectoris (4) Paroxysmal atrial fibrillation Current Visit: Yes Status: Chronic Currently rate controlled. Continue aspirin, and plavix. Decrease Toprol per plan in assessments above. Continue continuous telemetry monitoring. (5) Hypertension Current Visit: Yes Status: Acute Bp controlled. Continue home medications for chronic disease management. Qualifiers: Hypertension type: essential hypertension Qualified Code(s): I10 - Essential (primary) hypertension (6) Hyperlipidemia Current Visit: Yes Status: Acute Continue home medications for chronic disease management. Lipitor 40mg qhs. Qualifiers: Hyperlipidemia type: unspecified Qualified Code(s): E78.5 - Hyperlipidemia , unspecified Discussion w patient/family: The assessment and plan as outlined above was discussed with the patient and/or family members who expressed understanding and agreement. All questions were answered. Thank you for involving us in the care of your patient. Please call with any questions. Subjective Principal diagnosis: Accelerated idioventricular rhythm, palpitations Interval history: Patient reports doing well overnight, no new complaints. Reports some episodes of palpitations yesterday afternoon, but denies additional palpitations throughout the night and this morning. Patient denies chest pain or pressure, or shortness of breath. Patient denies fevers, chills, sweats, changes in vision or hearing, headaches, lightheadedness, dizziness, dysphagia, nausea, vomiting, abdominal pain, changes in bowels or bladder, weakness, or loss of sensation. Objective Vital Signs, Last 4 Hours Temp Pulse Resp BP Pulse Ox 07/13/16 08:34 95 07/13/16 07:29 97.6 F 59 17 117/68 95 General: Conversant, No Apparent Distress HEENT: Atraumatic, Normocephaly, Mucus Membranes Moist Neck: No JVD, Normal carotid pulses Cardiac: Other (Normal rate, irregular rhythm, surgical scar midline chest) Lungs: Normal Breath Sounds, No Wheeze, Rales, Rhonchi Neuro: Alert and responsive, No focal deficits noted Abdomen: Soft, Non-Tender Skin: No rashes noted on visualized skin Musculoskeletal: No Chest Wall Tenderness Extremities: No Clubbing, No Cyanosis, Normal Pulses, Other (minimal 1+ lower extremity edema) Results 07/11/16 19:55 07/11/16 19:55 - VTE Reasons for not Prescribing Prophylaxis: Treatment not Indicated - Low risk for VTE Consult Discharge Plan - Plan Referrals: Spring Andrews MD [Primary Care Provider] -
[2016-07-13] MEDS: Metoprolol XL (24 HR) Succ 50 MG TAB.ER.24H PO SCH (10:21)
[2016-07-13 11:29] VITALS: BP 110/65
--- NOTE | 2016-07-13 11:42 | Discharge Summary ---
Date of Encounter: 07/13/16 Time of Encounter: 10:00 - Discharge Diagnosis (1) Palpitations Priority: Primary Status: Acute (2) CAD (coronary artery disease) Priority: Secondary Status: Chronic Qualifiers: Coronary Disease-Associated Artery/Lesion type: bypass graft [place] vs. transplanted heart: [place] heart Associated angina: without angina Qualified Code(s): I25.810 - Atherosclerosis of coronary artery bypass graft(s) without angina pectoris (3) Paroxysmal atrial fibrillation Priority: Secondary Status: Chronic (4) Hypertension Priority: Secondary Status: Acute Qualifiers: Hypertension type: essential hypertension Qualified Code(s): I10 - Essential (primary) hypertension (5) Hyperlipidemia Priority: Secondary Status: Acute Qualifiers: Hyperlipidemia type: unspecified Qualified Code(s): E78.5 - Hyperlipidemia , unspecified (6) DVT prophylaxis Priority: Secondary Status: Acute (7) Accelerated idioventricular rhythm Priority: Primary Status: Acute (8) Frequent PVCs Priority: Primary Status: Acute - Discharge Medications Prescriptions: Metoprolol XL (24 HR) Succ [Toprol Xl] 50 mg PO BID #60 tab.er.24h Home Medications: Aspirin 81 mg PO QAM 12/06/14 [History] Atorvastatin [Lipitor] 40 mg PO HS 12/06/14 [History] Clopidogrel [Plavix] 75 mg PO QAM 12/06/14 [History] Nitroglycerin [Nitrostat] 0.4 mg SL Q5M PRN 12/06/14 [History] Ranolazine [Ranexa] 1,000 mg PO BID 12/06/14 [History] Montelukast [Singulair] 10 mg PO QPM 03/15/16 [History] Ranitidine HCl [Zantac] 300 mg PO DAILY PRN 03/15/16 [History] Isosorbide MONOnitrate (24 HR) [Imdur] 30 mg PO QAM 07/11/16 [History] Acyclovir [Zovirax] 800 mg PO 5XD 07/12/16 [History] DiphenhydraMINE [Benadryl] 25 mg PO Q6HR PRN 07/12/16 [History] Metoprolol XL (24 HR) Succ [Toprol Xl] 50 mg PO BID #60 tab.er.24h 07/13/16 [Rx] Allergies/Adverse Reactions: Allergies Penicillins Allergy (Mild, Verified 04/23/17 19:27) swelling, itching digoxin Allergy (Verified 07/11/16 19:27) unknown Procedures/tests Complete & Pending: Procedures Performed prior 72 hours Category Date Time Status ECG 12 lead ECG [ECG] Routine Y 07/11/16 19:25 Completed ECG 12 lead ECG [ECG] Routine Y 07/11/16 22:31 Completed EV echocardiogram w enhance Routine Y 07/12/16 09:55 Completed - Notes to Outpatient Provider 1. Metoprolol XL has been decreased to 50mg bid. 2. Pt is placed on Holter 48 hours upon discharge, please f/u result. Date of admission: 07/11/16 21:09 Primary care physician: Spring Aguilar Consults: 07/11/16 23:53 Consult to Cardiology [CONS] Routine Comment: Consulting Provider: [facility] Reason for Consult: Pt w/ significant PMH of CAD & a-fib admitted for new onset of palpitation. EKG showed continuous PVCs lasting 3-4 beats. No CP & troponin negative. Appreciate cardiology evaluation and recommendation. Will call in the morning. Call Completed: No Discharging clinician: Victorina Braswell Anticipated date of discharge: 07/13/16 - Patient Status Disposition: Home, Self-Care Condition: Good Functional capacity at discharge: independent ambulation Overall status at discharge: patient is back to baseline - Discharge Instructions Instructions: Atrial Fibrillation (DC) Follow Up With: Spring Vaughn MD [Partnered Physician] - 07/27/16 1:40 pm Spring Andrews MD [Primary Care Provider] - 07/14/16 9:30 am - Diet and Activity Diet: low fat, low cholesterol, low salt diet Interval History: Mr. Rios is a 61 year old male with PMH of A-fib and CAD s/p CABG in 2009 and multiple heart cath (latest one in 02/2016) with stents placed currently on aspirin & Plavix. Patient presented to [facility] with complaint of intermittent palpitation. It's acute new onset of palpitation starting 1:30 pm today. Patient can feel it initially every 5 minutes but now is every 2 minutes. Patient denies chest pain/discomfort, lightheadedness, syncope, dyspnea, cough, nausea, vomiting, recent weight change, edema. Patient had seen Dr. Peter of [facility] on 06/23/16 and reports no recent change in medications. Patient denies any recent OTC medication or supplement use. Patient doesn't drink coffee but did have a cup of caffeine-containing diet coke during lunch today. Patient reports having caffeine-containing diet coke few times in the past but never has this kind of palpation. Patient also states he typically does not feel palpation from his a-fib. Patient is full code. Hospital course: Mr. Rios is a 61 year old male admitted for palpitation. Patient was placed on cardiac monitoring. Cardiology consult was called. Patient was found multiple PVCs and accelerated idioventricular rhythm. His medication has been adjusted, metoprolol dose has been decreased from 75 to 50 mg twice a day per cardiology. He has no further accelerated idioventricular rhythm after medication adjustment. Patient with discharge home and continue follow-up with cardiology as outpatient. I saw and examined the patient today. He is awake alert, oriented 3. No chest pain or shortness of breath. No palpitation. Vital signs stable. Patient was discharged home with decreased the metoprolol dose, follow up cardiology as outpatient. Holter 48 hour monitoring ordered upon discharge, per cardiology. - Time Spent with Patient Total time spent providing and/or coordinating discharge services: 40 minutes Greater than 30 minutes - Constitutional Vitals: Temp Pulse Resp BP Pulse Ox 97.4 F L 58 17 110/65 96 07/13/16 11:25 07/13/16 11:25 07/13/16 11:25 07/13/16 11:25 07/13/16 11:25 General appearance: Present: cooperative, A&O X 3, no acute distress, answers questions appropriately - Head Head exam: Present: atraumatic, normocephalic - Eye Eye exam: Present: PERRL, conjuntiva pink, sclera anicteric Pupils: Present: PERRL - Neck Neck exam general surgery: Present: supple, trachea midline. Absent: lymphadenopathy - Respiratory Respiratory exam: Present: CTAB. Absent: accessory muscle use, rales, rhonchi, wheezes - Cardiovascular Cardiovascular exam: Present: RRR, +S1, +S2. Absent: diastolic murmur, gallop, rubs, systolic murmur - GI/Abdominal GI/Abdominal exam: Present: normal bowel sounds, soft, no peritoneal signs. Absent: distended, tenderness - Extremities Exam Extremities exam: Present: warm, radial pulses palpable and symetrical. Absent : calf tenderness, cyanotic, pedal edema - Neurological Exam Neurological exam: Present: CN II-XII intact, oriented X3, no focal deficits. Absent: pronater drift, facial droop, speech deficit - Skin Skin exam: Present: dry, intact - VTE Reasons for not Prescribing Prophylaxis: Treatment not Indicated - Low risk for VTE
== END 2016-07-13 13:42 | disposition home or self-care (01) ==
LOC: 3BNU 19:05 → EMEROO 19:05 → SUATTDRO 21:09 → 3BNU 21:54
PROVIDERS: ADMIT Internal Medicine; ATTEND Internal Medicine

== ENCOUNTER 2019-11-12 14:10 | Inpatient (IN) ==
[2019-11-12] MEDS ORDERED: Aspirin 325 MG TABLET PO ONE (16:08)
[2019-11-12 16:34] LABS: Basophils % 0.4 %; Eosinophils # 0.1 K/mcL (0.0-0.6); Eosinophils % 2.1 %; Hematocrit 45.3 % (37.5-50.1); Hemoglobin 15.6 g/dL (12.9-16.9); Immature Granulocytes % 0.9 % (0-4); Lymphocytes # 1.8 K/mcL (0.6-4.6); Lymphocytes % 25.8 %; Mean Corpuscular HGB Conc 34.4 g/dL (31.6-35.5); Mean Corpuscular Hemoglobin 31.3 pg (28.0-33.3); Mean Corpuscular Volume 90.8 fL (83.0-100.0); Mean Platelet Volume 10.3 fL (9.4-12.4); Monocytes # 0.4 K/mcL (0.0-1.3); Monocytes % 5.4 %; Neutrophils # 4.5 K/mcL (1.6-8.9); Platelet Count 206 K/mcL (140-400); Red Blood Count 4.99 M/mcL (4.19-5.50); Red Cell Distribution Width 12.2 % (11.5-14.5); Segmented Neutrophils % 65.4 %; White Blood Count 6.8 K/mcL (4.3-11.1)
[2019-11-12 16:50] LABS: BUN/Creatinine Ratio 13 (6-26); Blood Urea Nitrogen 12 mg/dL (8-23); Calcium 9.3 mg/dL (8.6-10.3); Carbon Dioxide 27 mEq/L (23-29); Chloride 103 mEq/L (98-107); Glucose 119 mg/dL (70-105); Magnesium 2.1 mg/dL (1.6-2.6); Osmolality,Calculated 285 (280-300); Sodium 137 mEq/L (136-145); Troponin I < 0.03 ng/mL (< 0.04); eGFR For African Americans > 60 (> 60); eGFR For Non-African Americans > 60 (> 60)
[2019-11-12] MEDS ORDERED: Naloxone 0.4 MG/ML INJ IVP PRN (17:33)
[2019-11-12] MEDS ORDERED: Nitroglycerin 0.4 MG TAB.SUBL SL PRN (17:48)
[2019-11-12 18:15] LABS: Estimated Average Glucose 117 mg/dl
[2019-11-12] MEDS: Ranolazine 500 MG TAB.ER.12H PO SCH (19:52)
[2019-11-12] MEDS: Metoprolol XL (24 HR) Succ 50 MG TAB.ER.24H PO SCH (19:52)
[2019-11-12 20:51] LABS: Chol/HDL Ratio 4.4 (0-4.9); Magnesium 2.1 mg/dL (1.6-2.6)
[2019-11-13 03:21] LABS: INR 1.1; Prothrombin Time 12.6 Seconds (9.4-12.1)
[2019-11-13 03:24] LABS: Activated Partial Thrombo Time 31.6 Seconds (26.0-36.0)
[2019-11-13 03:28] LABS: Alanine Aminotransferase 13 Units/L (7-52); Albumin 3.9 g/dL (3.5-5.7); Albumin/Globulin Ratio 1.8 (1.1-2.2); Alkaline Phosphatase 50 Units/L (34-104); Aspartate Amino Transferase 11 Units/L (13-39); BUN/Creatinine Ratio 15 (6-26); Bilirubin,Total 1.8 mg/dL (0.3-1.0); Blood Urea Nitrogen 14 mg/dL (8-23); Calcium 9.1 mg/dL (8.6-10.3); Carbon Dioxide 24 mEq/L (23-29); Chloride 104 mEq/L (98-107); Globulin 2.2 g/dL (2.4-3.5); Glucose 112 mg/dL (70-105); Osmolality,Calculated 285 (280-300); Potassium 3.7 mEq/L (3.5-5.1); Sodium 137 mEq/L (136-145); Total Protein 6.1 g/dL (6.4-8.9); Troponin I < 0.03 ng/mL (< 0.04); eGFR For African Americans > 60 (> 60); eGFR For Non-African Americans > 60 (> 60)
[2019-11-13] MEDS ORDERED: *HR* Enoxaparin 40 MG/0.4 ML SYRINGE SQ SCH (06:00)
[2019-11-13] MEDS ORDERED: Famotidine 20 MG TABLET PO PRN (11:25)
[2019-11-13] MEDS: Metoprolol XL (24 HR) Succ 50 MG TAB.ER.24H PO SCH ×2 (11:37→21:18)
[2019-11-13] MEDS: Aspirin 81 MG TAB.CHEW PO SCH (11:37)
[2019-11-13] MEDS: Ranolazine 500 MG TAB.ER.12H PO SCH ×2 (11:38→21:18)
[2019-11-13] MEDS ORDERED: *HR* Heparin 5,000 UNIT/ML VIAL IVP ONE (12:09)
[2019-11-13] MEDS ORDERED: *HR* Heparin 5,000 UNIT/ML VIAL IVP PRN ×2 (12:09)
[2019-11-13] MEDS ORDERED: Perflutren Lipid Microsphere 1.3 ML in 0.9 % Sodium Chloride 8.7 ML IVP PRN (12:36)
[2019-11-13] MEDS: Heparin 25,000UNIT/250ML 1/2NS 25,000 UNIT/250 ML IV.SOLN IVC SCH (12:57)
[2019-11-13] MEDS: Isosorbide MONOnitrate (24 HR) 60 MG TAB.ER.24H PO SCH (13:05)
[2019-11-14] MEDS: Heparin 25,000UNIT/250ML 1/2NS 25,000 UNIT/250 ML IV.SOLN IVC SCH (05:29)
[2019-11-14] MEDS: Ranolazine 500 MG TAB.ER.12H PO SCH ×2 (08:52→21:20)
[2019-11-14] MEDS: Metoprolol XL (24 HR) Succ 50 MG TAB.ER.24H PO SCH ×2 (08:53→21:20)
[2019-11-14] MEDS: Aspirin 81 MG TAB.CHEW PO SCH (08:53)
[2019-11-14] MEDS: Isosorbide MONOnitrate (24 HR) 60 MG TAB.ER.24H PO SCH (08:53)
[2019-11-14] MEDS ORDERED: Isosorbide MONOnitrate (24 HR) 60 MG TAB.ER.24H PO SCH (09:00)
[2019-11-14 09:05] LABS: Basophils # 0.1 K/mcL (0.0-0.2); Basophils % 0.6 %; Eosinophils # 0.2 K/mcL (0.0-0.6); Eosinophils % 2.1 %; Hematocrit 44.3 % (37.5-50.1); Hemoglobin 14.9 g/dL (12.9-16.9); Lymphocytes # 2.3 K/mcL (0.6-4.6); Lymphocytes % 28.8 %; Mean Corpuscular HGB Conc 33.6 g/dL (31.6-35.5); Mean Corpuscular Volume 92.1 fL (83.0-100.0); Mean Platelet Volume 10.4 fL (9.4-12.4); Monocytes # 0.6 K/mcL (0.0-1.3); Monocytes % 7.5 %; Neutrophils # 4.8 K/mcL (1.6-8.9); Platelet Count 185 K/mcL (140-400); Red Blood Count 4.81 M/mcL (4.19-5.50); Red Cell Distribution Width 12.4 % (11.5-14.5)
[2019-11-14] MEDS ORDERED: *HR* Heparin 10,000 UNIT/10 ML VIAL ONE (11:25)
[2019-11-14] MEDS ORDERED: 0.9 % Sodium Chloride 2,000 ML ONE (11:25)
[2019-11-14] MEDS ORDERED: ISOVUE-370 200 ML INFUS..BTL ONE (11:25)
[2019-11-14] MEDS ORDERED: Nitroglycerin 1,000 MCG/10 ML VIAL IV ONE (11:25)
[2019-11-14] MEDS ORDERED: Heparin 1,000 UNITS/500 mL 500 ML ONE ×2 (11:25→13:04)
[2019-11-14] MEDS ORDERED: *HR* Midazolam HCl 2 MG/2 ML VIAL ONE (12:36)
[2019-11-14] MEDS ORDERED: *HR* FentaNYL (PF) 100 MCG/2 ML VIAL ONE (12:36)
[2019-11-14] MEDS: Apixaban 5 MG TABLET PO SCH (21:20)
[2019-11-15 04:52] LABS: Alanine Aminotransferase 13 Units/L (7-52); Albumin 3.9 g/dL (3.5-5.7); Albumin/Globulin Ratio 1.7 (1.1-2.2); Alkaline Phosphatase 52 Units/L (34-104); Aspartate Amino Transferase 11 Units/L (13-39); BUN/Creatinine Ratio 15 (6-26); Bilirubin,Total 2.3 mg/dL (0.3-1.0); Blood Urea Nitrogen 14 mg/dL (8-23); Calcium 8.8 mg/dL (8.6-10.3); Carbon Dioxide 22 mEq/L (23-29); Chloride 102 mEq/L (98-107); Globulin 2.3 g/dL (2.4-3.5); Glucose 117 mg/dL (70-105); Magnesium 2.1 mg/dL (1.6-2.6); Osmolality,Calculated 280 (280-300); Phosphorous 4.4 mg/dL (2.7-4.5); Potassium 3.8 mEq/L (3.5-5.1); Sodium 134 mEq/L (136-145); Total Protein 6.2 g/dL (6.4-8.9); eGFR For African Americans > 60 (> 60); eGFR For Non-African Americans > 60 (> 60)
[2019-11-15 07:23] VITALS: BP 137/83
[2019-11-15] MEDS: Apixaban 5 MG TABLET PO SCH (07:24)
[2019-11-15] MEDS: Aspirin 81 MG TAB.CHEW PO SCH (07:24)
[2019-11-15] MEDS: Metoprolol XL (24 HR) Succ 50 MG TAB.ER.24H PO SCH (07:25)
[2019-11-15] MEDS: Isosorbide MONOnitrate (24 HR) 60 MG TAB.ER.24H PO SCH (07:25)
[2019-11-15] MEDS: Ranolazine 500 MG TAB.ER.12H PO SCH (07:25)
[2019-11-15] MEDS ORDERED: Metoprolol XL (24 HR) Succ 50 MG TAB.ER.24H PO SCH (09:00)
== END 2019-11-15 11:38 | disposition home or self-care (01) | DRG 251 ==
LOC: 3BNU 14:10 → EMEROOARM 14:10 → SUATTDRO 17:22 → 3BNU 18:20 → 2NNU 11-14 13:46 → SUATTDRO 11-14 17:58
PROVIDERS: ADMIT Internal Medicine; ATTEND Internal Medicine